=== PATIENT | male | born 1985 | race Caucasian/White ===

== ENCOUNTER 2018-04-03 13:47 | Emergency (ER) | payer BC, OTHER ==
[~2018-04-03] VITALS: Ht 188 cm; Wt 102.1 kg
[2018-04-03 15:01] VITALS: BP 144/88
== END 2018-04-03 15:02 | disposition home or self-care (01) ==
LOC: ER 13:47
DX: S61.012A Laceration without foreign body of left thumb without damage to nail, initial encounter (principal); W26.8XXA Contact with other sharp object(s), not elsewhere classified, initial encounter; Y93.89 Activity, other specified; Y92.89 Other specified places as the place of occurrence of the external cause; Y99.8 Other external cause status